=== PATIENT | male | born 1970 | race American Indian/Alaskan Native ===

== ENCOUNTER 2017-12-22 15:04 | Emergency (ER) | payer MEDICARE, MEDICAID ==
[~2017-12-22 15:04] MED LIST: CALCIUM CHLORIDE IV ONE
[2017-12-22] MEDS ORDERED: INTROPIN DRIP 800 MG/D5W 250 ML 800 MG/250 ML BAG IV ONE (15:29)
--- NOTE | 2017-12-22 15:54 | Emergency Department Report ---
ED CPR HPI - General Stated Complaint: CARDIAC ARREST Time Seen by Provider: 12/22/17 15:47 Source: EMS - History of Present Illness Initial Comments: Patient is 47 years old male with history of end-stage renal disease on hemodialysis. Patient brought to the ER via EMS in full cardiac arrest, CPR in progress. EMS reports the patient was found in agonal breathing with initial reading showing asystole. ACLS protocol initiated by EMS. EMS attempted intubation but unsuccessful. Upon arrival to the ER patient immediately intubated by me using a Glidoscope. Patient continued to be in asystole. Patient received calcium gluconate and bicarbonate. With continuous resuscitation patient rhythm changed to PEA, with palpable pulse but patient quickly lost his pulse again and went into PEA. Patient remained in PEA. Patient pronounced at 2:40 PM. For further information please refer to code sheet. Family informed. Complaint: found unresponsive Place: NH/SNF Bystander CPR Performed: Yes AED Applied by Bystander/Recreation Teacher: Yes Shock Advised: No Initial Findings in the Field: no pulse, systole Associated Injuries: No Treatments Prior to Arrival: other airway device, chest compressions, epinephrine mgs # (3) ED Review of Systems ROS: Stated complaint: CARDIAC ARREST Other details as noted in HPI Comment: Unobtainable due to pts medical conditions ED Physical Exam - General General appearance: other (unresponsive) - Head Head exam: Present: atraumatic, normocephalic, normal inspection - Eye Eye exam: Present: normal appearance Pupils: Present: other (pupils are 4 mm dilated and nonreactive) - ENT ENT exam: Present: normal exam - Neck Neck exam: Present: normal inspection - Respiratory Respiratory exam: Present: other (no spontaneous breathing) - Cardiovascular Cardiovascular Exam: Present: other (no heart sound) - GI/Abdominal GI/Abdominal exam: Present: soft, distended - Intubation Time Out Performed: Yes Sedative: none Laryngoscope: fiberoptic video scope Size: 4 ET Tube Size: 7.5 Tube Placement Confirmation: visualized tube passing t, equal breath sounds bilat, no breath sounds over epi, confirmation by capnometr Patient Tolerated Procedure: no complications Intubation Complications: none Critical Care Time: Yes Critical care time in (mins) excluding proc time.: 60 Critical care attestation.: If time is entered above; I have spent that time in minutes in the direct care of this critically ill patient, excluding procedure time. ED Disposition Clinical Impression: Cardiopulmonary arrest Disposition: DC-20 Is pt being admited?: No Condition: Stable Referrals: PRIMARY CARE,MD [Primary Care Provider] - 3-5 Days
[2017-12-22] MEDS ORDERED: CORDARONE IV ONE (23:00)
[2017-12-22] MEDS ORDERED: ADRENALIN ONE (23:00)
[2017-12-22] MEDS ORDERED: SODIUM BICARBONATE IV ONE (23:00)
== END 2017-12-22 19:31 ==
LOC: ED 15:04
DX: I46.9 Cardiac arrest, cause unspecified (principal); N18.6 End stage renal disease; Z99.2 Dependence on renal dialysis
CPT/HCPCS: 31500; 92950; 99285; J0171; J0282; J1265